=== PATIENT | male | born 1990 | race Caucasian/White ===

== ENCOUNTER 2024-05-20 15:56 | Emergency (ER) | payer SELFPAY ==
[2024-05-20] MEDS: Lidocaine 1% 10 ML MDV INJECT ONE (16:47)
[2024-05-20] MEDS: Diphtheria,Pertussis(Acell),Tetanus Vaccine 0.5 ML Syringe IM ONE (16:47)
[2024-05-20] MEDS: Cephalexin 500 MG Cap PO ONE (17:37)
== END 2024-05-20 18:45 | disposition home or self-care (01) ==
LOC: MW.ED 15:56
DX: S62.522A Displaced fracture of distal phalanx of left thumb, initial encounter for closed fracture (principal); S61.112A Laceration without foreign body of left thumb with damage to nail, initial encounter; Z79.899 Other long term (current) drug therapy; W23.1XXA Caught, crushed, jammed, or pinched between stationary objects, initial encounter; Z75.8 Other problems related to medical facilities and other health care; Z23 Encounter for immunization
CPT/HCPCS: 12001; 73140; 90471; 90715; 99283; A9270; J3490